=== PATIENT | female | born 1990 | race Caucasian/White ===

== ENCOUNTER 2019-03-18 04:00 | Observation (INO) | payer OTHER ==
[~2019-03-18] VITALS: Ht 152.4 cm; Wt 77.1 kg
== END 2019-03-18 05:35 | disposition home or self-care (01) ==
LOC: SPU 04:00
PROVIDERS: ADMIT Obstetrics & Gynecology; ATTEND Obstetrics & Gynecology
DX: O62.9 Abnormality of forces of labor, unspecified (principal); Z3A.39 39 weeks gestation of pregnancy
CPT/HCPCS: 81002; G0378

== ENCOUNTER 2019-03-19 03:00 | Inpatient (IN) | payer OTHER ==
[~2019-03-19] VITALS: Ht 152.4 cm; Wt 77.6 kg
[2019-03-19] MEDS ORDERED: OXYTOCIN/0.9 % SODIUM CHLORIDE 1,000 ML IV SCH (07:32)
[2019-03-19] MEDS ORDERED: LR 1,000 ML IV ONE (07:32)
[2019-03-19] MEDS ORDERED: LR 1,000 ML IV SCH ×2 (07:32→22:11)
[2019-03-19] MEDS ORDERED: NALBUPHINE HCL 10 MG/ML AMP IVP PRN (07:45)
[2019-03-19] MEDS ORDERED: TERBUTALINE SULFATE 1 MG/ML VIAL SUBCUT ONE (07:45)
[2019-03-19 07:55] LABS: BASOPHILS # (AUTO) 0.1 K/uL (0.0-0.2); BASOPHILS % (AUTO) 0.7 % (0.0-2.0); EOSINOPHILS % (AUTO) 0.1 % (0.0-4.0); HEMATOCRIT 40.9 % (36-48); HEMOGLOBIN 13.7 g/dL (12.0-16.0); LYMPHOCYTES # (AUTO) 1.9 K/uL (1.0-5.5); LYMPHOCYTES % (AUTO) 19.8 % (20.5-51.5); MEAN CORPUSCULAR HEMOGLOBIN 30 pg (27-31); MEAN CORPUSCULAR HGB CONC 34 % (32-36); MEAN CORPUSCULAR VOLUME 88 fL (79.0-98.0); MONOCYTES # (AUTO) 0.5 K/uL (0.0-1.0); MONOCYTES % (AUTO) 5.5 % (1.7-9.3); NEUTROPHILS % (AUTO) 73.9 % (40.0-70.0); PLATELET COUNT (AUTO) 197 K/uL (130-430); RED BLOOD CELL COUNT(AUTO) 4.63 MIL/uL (4.2-6.2); RED CELL DISTRIBUTION WIDTH 15.9 % (9.0-15.0); WHITE BLOOD COUNT (AUTO) 9.4 K/uL (4.8-10.8)
[2019-03-19] MEDS ORDERED: fentaNYL CITRATE/PF 100 MCG/2 ML AMP ONE (08:57)
[2019-03-19] MEDS ORDERED: ROPIVACAINE HCL/PF 0.2% 100 ML ONE ×2 (08:57→18:27)
[2019-03-19] MEDS ORDERED: LR 500 ML IV ONE (10:11)
[2019-03-19] MEDS ORDERED: fentaNYL CITRATE/PF 100 MCG/2 ML AMP EP ONE (10:15)
[2019-03-19] MEDS ORDERED: ePHEDrine sulfate 50 MG/ML VIAL IVP PRN (10:15)
[2019-03-19] MEDS ORDERED: FENT2mCg/mL-ROPIVA0.2%/NS EPID 200 ML EP SCH (10:15)
[2019-03-19 20:45] VITALS: BP_SYST 119
[2019-03-19] MEDS ORDERED: TEMAZEPAM 15 MG CAPSULE PO PRN (21:00)
[2019-03-19] MEDS ORDERED: OXYTOCIN/0.9 % SODIUM CHLORIDE 1,000 ML IV ONE (22:06)
[2019-03-19] MEDS ORDERED: CEFAZOLIN 2 GM IVPB PREMIX 50 ML IV ONE (22:07)
[2019-03-19] MEDS ORDERED: NALOXONE HCL 1 MG in NACL 0.9% 1,000 ML IV PRN ×4 (22:11)
[2019-03-19] MEDS ORDERED: ONDANSETRON HCL 4 MG/2 ML VIAL IVP PRN (22:15)
[2019-03-19] MEDS ORDERED: MEPERIDINE HCL/PF 25 MG/ML DISP.SYRIN IVP PRN ×2 (22:15)
[2019-03-19] MEDS ORDERED: DIPH-TET-PERTUS Vaccine 0.5 ML VIAL (ADACEL) I.M. PRN (22:15)
[2019-03-19] MEDS ORDERED: HYDROCORTISONE 0.5%, 28.35 GM TOPICAL CREAM TP PRN (22:15)
[2019-03-19] MEDS ORDERED: RHO(D) IMMUNE GLOBULIN/MALTOSE 1500 UNITS/1.3 ML (WINHRO) IM PRN (22:15)
[2019-03-19] MEDS ORDERED: HYDROmorphone 2 MG/ML VIAL IVP PRN ×2 (22:15)
[2019-03-19] MEDS ORDERED: OXYCODONE/ACETAMINOPHEN 5-325 TABLET PO PRN (22:15)
[2019-03-19] MEDS ORDERED: DIPHENHYDRAMINE HCL 50 MG CAPSULE PO PRN (22:15)
[2019-03-19] MEDS ORDERED: NALOXONE HCL 0.4 MG/ML AMP (NARCAN) IVP PRN ×3 (22:15)
[2019-03-19] MEDS ORDERED: WITCH HAZEL LEAF 1 MED.PAD MED.PAD TP PRN (22:15)
[2019-03-19] MEDS ORDERED: DIPHENHYDRAMINE INJ 50 MG/ML VIAL IVP PRN (22:15)
[2019-03-19] MEDS ORDERED: LANOLIN 7 GM OINT. TP PRN (22:15)
[2019-03-19] MEDS ORDERED: HYDROmorphone 1 MG INJ. 1 MG/ML AMPUL IVP PRN (22:15)
[2019-03-19] MEDS ORDERED: MEASLES,MUMPS&RUBELLA VACC/PF 12500 UNIT/0.5 ML VIAL SUBQ PRN (22:15)
[2019-03-19] MEDS ORDERED: DERMOPLAST SPRAY TP PRN (22:15)
[2019-03-19 23:25] VITALS: BP_SYST 137
[2019-03-20 06:49] LABS: HEMATOCRIT 34.6 % (36-48); HEMOGLOBIN 11.7 g/dL (12.0-16.0)
[2019-03-20] MEDS: SIMETHICONE 80 MG TAB.CHEW PO PRN ×3 (09:00→17:36)
[2019-03-20] MEDS ORDERED: LIDOCAINE 1% *INHALATION* MPF 5 ML VIAL INH ONE (10:07)
[2019-03-20] MEDS: IBUPROFEN 600 MG TABLET PO SCH ×2 (12:05→17:36)
[2019-03-21] MEDS: IBUPROFEN 600 MG TABLET PO SCH ×3 (00:05→12:00)
[2019-03-21] MEDS: DOCUSATE SODIUM 100 MG CAPSULE PO PRN ×2 (00:06→12:00)
== END 2019-03-21 14:30 | disposition home or self-care (01) | DRG 788 ==
LOC: SPU 03:00 → OBSVTOIN 07:28 → SPU 03-20 21:00
PROVIDERS: ADMIT Obstetrics & Gynecology; ATTEND Obstetrics & Gynecology
PROC: 10D00Z1 Extraction of Products of Conception, Low, Open Approach (ICD-10-PCS; principal; 2019-03-19 22:30)
DX: O99.284 Endocrine, nutritional and metabolic diseases complicating childbirth (principal); E03.9 Hypothyroidism, unspecified; Z3A.39 39 weeks gestation of pregnancy; Z37.0 Single live birth
CPT/HCPCS: 36415; 85018-TC; 85025; 86592; 86886; 86900; 86901; 94760; G0378; J0690; J2001; J2310; J2795; J3010; J7030; J7120